=== PATIENT | female | born 1990 | race Two or more races ===

== ENCOUNTER 2017-12-04 10:20 | Inpatient (IN) | payer MEDICAID ==
[2017-12-04] MEDS ORDERED: LIDOCAINE 1% 300 MG/30 ML SDV ONE (11:42)
[2017-12-04] MEDS ORDERED: OLIVE OIL 118 ML BTL ONE (11:43)
[2017-12-04] MEDS ORDERED: AMMONIA AROMATIC 1 EACH AMP IH ONE (11:43)
[2017-12-04] MEDS ORDERED: OXYTOCIN 10 UNIT/ML VIAL ONE (11:43)
[2017-12-04] MEDS ORDERED: TERBUTALINE SULFATE 1 MG/ML VIAL ONE (11:43)
[2017-12-04] MEDS ORDERED: MISOPROSTOL 200 MCG TAB ONE (11:43)
[2017-12-04] MEDS ORDERED: AMMONIA AROMATIC 1 EACH AMP IH PRN (13:14)
[2017-12-04] MEDS ORDERED: EPSOM SALT 454 GM TP PRN (13:14)
[2017-12-04] MEDS ORDERED: LIDOCAINE 1% 300 MG/30 ML SDV SC PRN (13:14)
[2017-12-04] MEDS ORDERED: LR 1,000 ML IV PRN (13:14)
[2017-12-04] MEDS ORDERED: IBUPROFEN 600 MG TAB PO PRN (13:14)
[2017-12-04] MEDS ORDERED: MISOPROSTOL 200 MCG TAB PO PRN (13:14)
[2017-12-04] MEDS ORDERED: OLIVE OIL 118 ML BTL MISC PRN (13:14)
[2017-12-04] MEDS ORDERED: TERBUTALINE SULFATE 1 MG/ML VIAL IV PRN (13:14)
[2017-12-04 13:26] LABS: PLATELET COUNT 215 10^3/uL (150-400)
--- NOTE | 2017-12-04 13:34 | PDGENHP ---
History and Physical History and Physical: CARE: [facility] HPI: Patient is a 27 yo G 4 P 2 that presents to L&D with complaints of regular painful contractions since 0600 this am. They are currently q 5 min and palpate mod. She denies LOF/VB. States baby is active. Her cervix changed from 3-4 to 5/90/-1 during 2 hour labor check. Category 1 EFM. EDC: 12/13/17 which is based on LMP: 03/08/17 which is known and consistent with Ultrasound at 11 weeks. Her is complicated by: - hypothyroid - tx with synthroid - FOB family h/o trisomy 21 -all genetic screenings WNL Review of Systems: Constitutional: Denies any fever, chills, or fatigue HEENT: denies any visual changes, difficulty swallowing, hearing loss Cardiovascular: Denies any chest pain, palpitations, leg swelling Respiratory: denies any cough, wheezing, or shortness of breathe GI: Denies any nausea, vomiting, diarrhea, constipation : denies any dysuria, urgency, frequency, vaginal bleeding Musculoskeletal: denies any muscle or bone pain Skin: denies any rashes Neuro: denies any headache, seizures, lightheadedness, dizziness, or loss of consciousness Psychiatric: denies any depression, anxiety, or SI/HI thoughts HISTORY: Previous OB history: previous X2, MAB X1 with D&C Past medical history: hypothyroid Past surgical history: D&C after - 2011 Medications: PNV, synthroid Allergies (list reaction): NKDA LABS: Rh: O pos ABS: Neg Rubella: Immune HbsAg: NR HIV: NR VDRL: NR 1hr: 106 GC: Neg Chlamydia: Neg Pap: Normal GBS: neg BMI: (prepreg) 27 PHYSICAL EXAM: Constitutional: WN, A&Ox3 HEENT: normocephalic atraumatic, supple Heart: RRR, no murmur Chest: CTA-B Abdomen: Soft, nontender, gravid SVE: 5/90/-1 Extremities: sml. pedal edema, negative guillermo's sign Neuro: grossly normal Psych: normal affect assessment: Reassuring FHTs, baseline 140s +accels, no decels, moderate variability Contractions: toco q 5, mod Assessment: 1) 27 yo G 4 P 2 with IUP@ 38.5 weeks ega 2) Spontaneous labor 3) GBS neg 4) Cat 1 FHR tracing 5) Desires unmedicated Plan: 1) Admit to L&D 2) Intermittent monitoring per protocol 3) Pain management as patient desires 4) Anticipate
[2017-12-04] MEDS ORDERED: SIMETHICONE 80 MG TAB CHEW PO PRN (17:32)
[2017-12-04] MEDS ORDERED: DOCUSATE SODIUM 100 MG CAP PO PRN (17:32)
[2017-12-04] MEDS ORDERED: HYDROCODONE/APAP 5/325 TAB PO PRN (17:32)
--- NOTE | 2017-12-04 17:43 | OBDEL ---
Info Type: Vaginal Presentation at Delivery: Vertex L&D Analgesia/Anesthesia Type: None GBS+: No Intrapartum Medications: Generic Name Dose Route Start Last Admin Trade Name Freq PRN Reason Stop Dose Admin Lactated Ringer's 1,000 mls @ 0 mls/hr 12/04/17 13:14 12/04/17 16:56 Lr IV 12/05/17 13:13 1,000 mls PRN PRN Administration SEE PROTOCOL CONDITIONS Protocol Per Protocol Indications for Delivery: Spontaneous Labor Vaginal Delivery - Delivery Provider Delivery Physician/CNM: Neeru Salcido - Labor and Delivery Onset of Contractions Date: 12/04/17 Onset of Contractions Time: 05:00 Rupture of Membranes Date: 12/04/17 Rupture of Membranes Time: 15:52 Rupture of Membranes Type: Spontaneous Amniotic Fluid Color: Clear Dilation Complete Date: 12/04/17 Dilation Complete Time: 16:32 Placenta Delivery Date: 12/04/17 Placenta Delivery Time: 17:23 Total Hours of Labor: 12 Vaginal Sponge Count Correct: Yes Vaginal Needle Count Correct: Yes Vaginal Sweep Performed: No EBL: 250 Delivery Comment: Dr Pratt called due to delayed placenta delivery, but placenta delivered spontaneously after she arrived at bedside. - Medications Labor Augmentation/Induction Methods Used: None [place] Data ALEXIS: 12/13/17 Gestational Age: 38 week(s) and 5 day(s) Baeza Delivery Date: 12/04/17 Delivery Time: 16:34 Sex of : Male Score (1 Min): 8 Score (5 Min): 9 ICD10 Worksheet Patient Problems: Problems Problem Status Onset Vaginal delivery Acute - ICD10 Problem Qualifiers (1) Vaginal delivery
[2017-12-05] MEDS: IBUPROFEN 600 MG TAB PO PRN ×3 (00:05→16:21)
[2017-12-05] MEDS ORDERED: LEVOTHYROXINE 50 MCG TAB PO SCH (06:00)
[2017-12-05 09:36] VITALS: BP 98/66
--- NOTE | 2017-12-05 10:35 | OBPP ---
Progress Note Assessment/Plan: Assessment: 1) s/p PPD # 1 - pt is stable 2) Hypothyroidism - pt stable on meds Plan: Continue routine pp care Pt would like to go home later today Discharge home if baby is cleared Instructions reviewed with pt No Rx Cont PNV Pelvic rest RTC in 4 and 6 weeks for pp visit 12/05/17 10:35 Subjective/ Course: 12/05/17 10:36 Pt seen and examined. Doing well with no complaints. Mild cramping, relief with Motrin. Mod lochia. She is OOB, adama regular diet, voiding and passing flatus. No BM yet. BF going well so far, also pumping. Would like to go home today. Objective: 12/04/17 13:10 Patient ABO/Rh O POSITIVE 12/04/17 13:10 Temp Pulse Resp BP Pulse Ox 36.3 C 81 18 98/66 L 97 12/05/17 08:00 12/05/17 08:00 12/05/17 08:00 12/05/17 08:00 12/05/17 08:00 Uterine Position/Fundal Height: Umbilicus -2 Uterine Tone: Firm Physical Exam - Physical Exam General Appearance: alert, no apparent distress, mild distress Respiratory: lungs clear, normal breath sounds Cardiac/Chest: regular rate, rhythm Abdomen: normal bowel sounds, non-tender, soft, flatus (+) Extremities: non-tender, normal inspection Skin: normal color, warm/dry Neuro/Psych: alert, normal mood/affect, oriented x 3
--- NOTE | 2017-12-05 10:38 | OBGCSDC ---
General Delivery Information - General Info : 4 Para: 2 Abortions: 1 Type: Vaginal L&D Analgesia/Anesthesia Type: None Admission Date: 12/04/17 Labs: Patient ABO/Rh O POSITIVE 12/04/17 13:10 Hct 42.0 % (38.0-47.0) 12/04/17 13:10 - Hospital Course : 12/05/17 10:36 Pt seen and examined. Doing well with no complaints. Mild cramping, relief with Motrin. Mod lochia. She is OOB, adama regular diet, voiding and passing flatus. No BM yet. BF going well so far, also pumping. Would like to go home today. Vaginal - Delivery Provider Delivery Physician/CNM: Neeru Salcido - Diagnosis Rupture of Membranes Type: Spontaneous Amniotic Fluid Color: Clear - Delivery EBL: 250 Data ALEXIS: 12/13/17 Gestational Age: 38 week(s) and 6 day(s) Baeza Delivery Date: 12/04/17 Delivery Time: 16:34 Sex of Infant: Male Score (1 Min): 8 Score (5 Min): 9 Discharge Information - Discharge Information Condition: Good Instruction/Follow Up: Four Weeks, Six Weeks
== END 2017-12-05 19:43 | disposition home or self-care (01) | DRG 560 ==
LOC: FLD 10:20 → OBSVTOIN 13:15 → FOB 18:39
PROVIDERS: ADMIT Advanced Practice Midwife; ATTEND Obstetrics & Gynecology
PROC: 10E0XZZ Delivery of Products of Conception, External Approach (ICD-10-PCS; principal; 2017-12-04)
DX: O99.283 Endocrine, nutritional and metabolic diseases complicating pregnancy, third trimester (principal); E03.9 Hypothyroidism, unspecified; Z3A.38 38 weeks gestation of pregnancy; Z37.0 Single live birth
CPT/HCPCS: J2590; J3105